=== PATIENT | female | born 1965 | race Caucasian/White ===

== ENCOUNTER → 2017-06-19 | Outpatient (CLI) | payer MEDICARE ==
[2017-06-19 18:54] LABS: HEMOGLOBIN 16.4 g/dL (12.2-16.2); LYMPH # 1.4 K/mm3 (0.7-4.5); LYMPH % 30.1 % (10-50.0)
[2017-06-19 20:19] LABS: BUN 10 mg/dL (7-18)
[2017-06-19 21:27] LABS: GFR (ESTIMATED) 89 ML/MIN (59-)
== END ==
LOC: LAB 17:18
PROVIDERS: Nurse Practitioner Family
DX: R53.83 Other fatigue (principal); E55.9 Vitamin D deficiency, unspecified; Z79.899 Other long term (current) drug therapy

== ENCOUNTER 2017-06-29 15:25 | Emergency (ER) | payer MEDICARE, OTHER ==
[~2017-06-29] VITALS: Ht 165.1 cm; Wt 63.5 kg
[~2017-06-29 15:25] MED LIST: CIPRO 500MG TA500 MG PO; FLEXERIL10 MG PO; MEDROL 4MG. DOSE4 MG PO; METHADONE 10MG10 MG PO; MS CONTIN60 MG PO; NEURONTIN600 M1 PO; VISTARIL25 M1 PO
[2017-06-29] MEDS ORDERED: ZUBSOLV1 TA1 SL (15:38)
[2017-06-29] MEDS ORDERED: LAMOTRIGINE150 MG PO (15:38)
[2017-06-29] MEDS ORDERED: SAPHRIS10 MG SL (15:39)
--- NOTE | 2017-06-29 16:15 | Emergency Room Report ---
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 N Clinical Suspician of Infection? N Mental Status: 1 - Regular (Normal Baseline) Sepsis Risk:Low Sepsis Risk Have you (or family members/close friends) recently traveled outside the [place]? N If Yes, where/when: Have you had exposure to infectious disease within the past month? N TB? Other? Specify: 51 years old white female smoker 2 packs per day. 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 She has a long-standing 30 years history of headache twice a month. Usually Excedrin occipital dull throbbing associated with photophobia and vomiting. She presented today with another episode of occipital headache started 8:00 AM associated with photophobia but no vomiting. She denies having numbness tingling weakness of the upper and lower extremities. She denies any neck stiffness or rigidity. She complains of feeling slightly confused for the past 2 weeks as if she is looking for her words or her thinking is not clear. Source patient, RN notes reviewed Exam Limitations no limitations ALLERGIES Coded Allergies: No Known Allergies (09/24/15) Home Medications Reported Medications BUPRENORPHINE HCL/NALOXONE HCL (Zubsolv 5.7-1.4 MG Tablet Sl) 1 TAB SL DAILY #60 Lamotrigine 150 MG PO DAILY #30 ASENAPINE MALEATE (Saphris) 10 MG SL DAILY History Medical History General CAD? No Angina: No MT: No Hypertension? No Hyperlipidemia? No CHF? No DVT? No PE? No COPD? No Asthma? No Anemia? No GERD? No Gastric ulcers? No GI Bleed? No Hernia? No Thyroid Problems? No Hypothyroidism? No CVA? No Seizures? No Diabetes? No Renal Insuffiency? No End Stage Renal Disease? No UTI? No Stones? No BPH? No GB Disease: No Nephritic Syndrome? No Asplenia? No Hepatitis? No Sickle Cell Disease? No Arthritis? No Migraines? No Cataracts? No Glaucoma? No MRSA? No HIV? No TB? No Anxiety? Yes Depression? Yes Cancer? 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 Respiratory no symptoms reported Cardiovascular no symptoms reported Gastrointestinal no symptoms reported Genitourinary no symptoms reported. Musculoskeletal no symptoms reported Skin no symptoms reported Physical Exam Vital Signs Vital Signs Date Time Temp Pulse Resp B/P Pulse O2 O2 Flow FiO2 Ox Delivery Rate 06/29 1533 98.5 85 16 122/74 100 - WBC >12,000 or <4,000 or 10% bands? 2 or more SIRS Criteria Met? B/P:122/74 MAP:90 Creatinine >2.0? UA output<0.5ml/kg/hr for 2 hrs? Platelet count >100,000? Lactate >2.0mmol/1? INR >1.2 or PTT > than 60 sec? Evidence of Organ Dysfunction? Provider documented clinical suspician of infection? N Sepsis Criteria Count: 0 Sepsis Risk: Low Sepsis Risk General Appearance normal appearance, WD/WN Eye Exam - bilateral eye normal exam, bilateral eye PERRL, bilateral eye EOMI Ear, Nose, Throat hearing grossly normal, normal ENT inspection Neck normal inspection, non-tender, supple, full range of motion Respiratory Status Yes: trachea midline, chest symmetrical, non tender chest. No: respiratory distress. Lung Sounds bilateral: normal breath sounds, lungs clear. 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 No Results/Orders Laboratory Tests 06/29/17 1700: Ammonia Pending 06/29/17 1635: ABG pH 7.43, ABG pCO2 (Temp Corrct 49.2 H, ABG pO2 (Temp Correct 72.8 L, ABG HCO3 32.1 H, ABG Total CO2 33.6 H, ABG O2 Sat (Calculated) 95.7, ABG Base Excess 7.8 H, Praneeth Test ACCEPTABLE, Blood Gas Comments RIGHT RADIAL 06/29/17 1630: TSH Pending, Free T4 Index Pending, Thyroxine (T4) Pending, T3 Uptake Pending, Salicylates Pending, Acetaminophen Pending, Alcohols Pending 06/29/17 1603: Creatine Kinase 53, CK-MB (CK-2) Rel Index 0.9, CK and CKMB Interp < 0.5, Troponin I < 0.02 06/29/17 1603: Sodium 136, Potassium 4.8, Chloride 99, Carbon Dioxide 35 H, BUN 16, Creatinine 0.8, Estimated Creat Clear 85, Estimated GFR (MDRD) 76, Glucose 144 H, Calcium 9.3, Total Bilirubin 0.3, AST 11 L, ALT 16, Alkaline Phosphatase 98, Total Protein 7.9, Albumin 3.8, Globulin 4.1 H, Albumin/Globulin Ratio 0.9 L, WBC 4.0 L, RBC 5.71 H, Hgb 16.7 H, Hct 51.7 H, MCV 90.6, RDW 13.1, Plt Count 193 , MPV 8.6, Gran % 64.7, Gran # 2.6, Lymphocytes % 27.6, Monocytes % 5.7, Eosinophils % 1.3, Basophils % 0.7, Lymphocytes # 1.1, Monocytes # 0.2, Eosinophils # 0.1, Basophils # 0.0, PUBS MCHC 32.7, MCH 29.7 Current Medication Orders Sig/Van Start time Last Medication Dose Route Stop Time Status Admin Sodium Chloride 10 ML PRN PRN 06/29 1545 AC IV 06/30 1537 Orders Procedure Date/time Status DIET-NOTHING BY MOUTH 06/29 D Active CHEST(2 VIEWS-NOT PORTABLE) 06/29 1618 Active THYROID PANEL 2 (WITH TSH) 06/29 1618 Active ELECTROCARDIOGRAM REQUEST 06/29 161 Active ARTERIAL BLOOD GAS REQUEST 06/29 1617 Active SALICYLATE 06/29 1617 Active DRUG ABUSE SCREEN (10) 06/29 1617 Active AMMONIA 06/29 161 Active ALCOHOL 06/29 161 Active Acetaminophen 06/29 161 Active 12 LEAD EKG-BESSON (INITIAL) 06/29 1540 Active ELECTROCARDIOGRAM REQUEST 06/29 1540 Active ARTERIAL BLOOD GAS REQUEST 06/29 1540 Active CARDIAC ENZYMES 06/[address] HEAD REQ 06/29 1538 Complete IV SALINE LOCK 06/29 1538 Active CBC WITH AUTO DIFF 06/29 153 Complete CHEM 12 PROFILE 06/29 1538 Complete Departure Departure Time of Disposition 1714 Disposition DC Home or Self Care(routine) Clinical Impression Primary Impression: Carbon monoxide poisoning syndrome Secondary Impressions: COPD (chronic obstructive pulmonary disease), Polycythemia secondary to smoking, Secondary polycythemia, Tobacco use Condition STABLE Referrals Yelena DELCID,Grabiel Miner (Family) Additional Instructions i EXPLAINED TO THE PATIENT THAT HER CARBON MONOXICE IS 15 WHICH IS ABOVE THE NROMALLIMIT FOR SMOKER. aLSO HER HGB IS 16 WHICH MAKES HER AT RISK FOR STROKE SHE WAS DVISED TO SEE PCP FOR SMOKING CESSATION TAKE DAILY ASA FOR STROKE PREVENTION RETURN IF WORSE OR OF NEEDED Discharge Counseling Counseled pt/family regarding diagnosis, test results, medications/RX, home care, follow up needs Prescriptions Current Visit Scripts Aspirin (Adult Low Dose Aspirin EC) 81 MG PO DAILY #30 Ref 5 ED Critical Care Critical Care No If Critical Care minutes are documented, the time involved in the performance of seperately reportable procedures was not counted toward critical care time documented. I directly delivered medical care to this critically ill and/or injured patient. Timely evaluation and treatment was necessary to address the significant organ system(s) dysfunction present in this patient. at 1718
[2017-06-29 16:17] LABS: LYMPH # 1.1 K/mm3 (0.7-4.5); LYMPH % 27.6 % (10-50.0)
[2017-06-29 16:24] LABS: HEMOGLOBIN 16.7 g/dL (12.2-16.2)
--- NOTE | 2017-06-29 16:33 | RADIOLOGY REPORT PS360 ---
CT HEAD W/O CONTRAST HISTORY: HEADACHE, FEELS LIKE SHE IS GOING TO PASS OUT ORDERING PHYSICIAN: Bernadine Nelson MD PATIENT AGE: 51 years COMPARISON: None TECHNIQUE: Axial images obtained without contrast. Brain and bone windows reviewed. FINDINGS: No midline shift, mass effect, intracranial hemorrhage, hydrocephalus, or extra-axial fluid collection is evident. The calvarium has an unremarkable appearance. No mastoid effusion. The visualized paranasal sinuses are unremarkable. IMPRESSION: Negative CT head without contrast. No acute finding.
[2017-06-29 16:48] LABS: ALLEN'S TEST ACCEPTABLE; ARTERIAL ABE 7.8 MMOL/L (-2.4-+2.3); ARTERIAL PO2 72.8 MMHG (80-100); ARTERIAL TCO2 33.6 MMOL/L (23-27); OXYGEN ROOM AIR
[2017-06-29] MEDS ORDERED: ADULT LOW DOSE81 MG PO (17:18)
[2017-06-29 17:26] VITALS: BP 128/82
--- NOTE | 2017-07-05 14:34 | RADIOLOGY REPORT PS360 ---
CHEST(2 VIEWS-NOT PORTABLE) HISTORY: Weakness, smoker weakness ORDERING PHYSICIAN: Bernadine Nelson MD PATIENT AGE: 51 years COMPARISON: None available FINDINGS: Unremarkable cardiovascular structures. No lobar consolidation or collapse there are bilateral breast implants. Calcified granuloma is present in the left lower lobe. There is minimal blunting of the posterior costophrenic sulcus nonspecific. No acute bony anomalies. IMPRESSION: No acute finding
== END 2017-06-29 17:27 | disposition home or self-care (01) ==
LOC: ER 15:25
PROVIDERS: Emergency Medicine
DX: T58.8X4A Toxic effect of carbon monoxide from other source, undetermined, initial encounter (principal); D75.1 Secondary polycythemia; F17.210 Nicotine dependence, cigarettes, uncomplicated; F41.8 Other specified anxiety disorders